=== PATIENT | female | born 1950 | race Caucasian/White ===

== ENCOUNTER 2019-10-10 10:38 | Day surgery (SDC) | payer MEDICARE, BC ==
[~2019-10-10 10:38] MED LIST: Cefuroxime 10 MG/ML SYRINGE EYERT SCH; Lactated Ringers 1,000 ML IV SCH; Lidocaine 1% PF 2 ML SDV INJECT SCH; Lidocaine 1%/Sod Bicarbonate in NS 8.4% 1 ML Syringe IDERM PRN; Pilocarpine 4% Ophth Soln 15 ML Bot EYERT SCH; Polymyxin B/Trimethoprim 10 ML Bottle EYERT SCH; Sodium Chloride 0.9% 10 ML Syringe FLUSH PRN
[2019-10-10] MEDS: Ofloxacin 0.3% Ophth Soln 5 ML Bottle EYERT SCH ×2 (12:27→13:15)
[2019-10-10] MEDS: Brimonidine 0.2% Ophth Soln 5 ML Bottle EYERT SCH ×3 (12:35→14:42)
[2019-10-10] MEDS: Phenylephrine 2.5% Ophth Soln 2 ML Bot EYERT SCH ×5 (12:40→14:18)
[2019-10-10] MEDS: Tropicamide 1% Ophth Soln 15 ML Bottle EYERT SCH ×4 (12:46→13:36)
--- NOTE | 2019-10-10 13:10 | PCM.PREANE ---
Preanesthetic Assessment - Anesthesia/Transfusion/Family Hx Anesthesia History: Prior Anesthesia Without Reaction Family History of Anesthesia Reaction: No Transfusion History: Prior Transfusion Without Reaction - Review of Systems General: No Symptoms Pulmonary: No Symptoms Cardiovascular: No Symptoms Gastrointestinal: No Symptoms Neurological: No Symptoms Other: Reports: None - Physical Assessment NPO Status Date: 10/10/19 NPO Status Time: 06:00 Height: 1.63 m Weight: 57.606 kg ASA Class: 2 Mental Status: Alert & Oriented x3 Airway Class: Mallampati = 2 Dentition: Reports: Normal Dentition Thyro-Mental Finger Breadths: 3 Mouth Opening Finger Breadths: 3 ROM/Head Extension: Full Lungs: Clear to Auscultation, Normal Respiratory Effort Cardiovascular: Regular Rate, Regular Rhythm - Allergies Allergies/Adverse Reactions: Allergies Allergy/AdvReac Type Severity Reaction Status Date / Time aspirin Allergy Cannot Verified 10/09/19 14:45 Remember penicillin G Allergy Cannot Verified 10/09/19 12:16 Remember sulfacetamide Allergy Cannot Verified 10/09/19 12:15 Remember - Acknowledgements Anesthesia Type Planned: MAC Pt an Appropriate Candidate for the Planned Anesthesia: Yes Alternatives and Risks of Anesthesia Discussed w Pt/Guardian: Yes Pt/Guardian Understands and Agrees with Anesthesia Plan: Yes PreAnesthesia Questionnaire HEENT History: Reports: Cataract Cardiovascular History: Reports: None Respiratory History: Reports: None Gastrointestinal History: Reports: None Genitourinary History: Reports: None Musculoskeletal History: Reports: None Neurological History: Reports: None Psychiatric History: Reports: None Endocrine/Metabolic History: Reports: None Oncologic (Cancer) History: Reports: Breast (diagnosed 2015) - Past Surgical History HEENT Surgical History: Reports: Oral Surgery Female Surgical History: Reports: Breast Biopsy, Tubal Ligation, Other (See Below) (breast lumpectomy) - SUBSTANCE USE Smoking Status *Q: Never Smoker - HOME MEDS Home Medications: Home Meds Cholecalciferol (Vitamin D3) [Vitamin D3] 1,000 unit PO DAILY 10/09/19 [History] Clopidogrel Bisulfate [Plavix] 75 mg PO DAILY 10/09/19 [History] Fish Oil/Fortine-3 Fatty Acids [Fish Oil 1,000 MG] 1 gm PO DAILY 10/09/19 [History ] Glucosamine [Glucosamine Sulfate] 500 mg PO DAILY 10/09/19 [History] Hydroxyurea [Hydrea] 500 mg PO DAILY 10/09/19 [History] - CURRENT (IN HOUSE) MEDS Current Meds: Current Medications Brimonidine Tartrate (Alphagan 0.2% Ophth Soln) 0 ml EYERT ASDIRECTED TOMI Stop: 10/10/19 18:00 Last Admin: 10/10/19 12:35 Dose: 1 drop Cefuroxime Sodium (Zinacef) 0 mg EYERT ASDIRECTED TOMI Stop: 10/10/19 18:00 Lactated Ringer's (Ringers, Lactated) 1,000 mls @ 125 mls/hr IV ASDIRECTED TOMI Stop: 10/10/19 23:00 Lidocaine HCl (Xylocaine-Mpf 1%) 0 ml INJECT ASDIRECTED TOMI Stop: 10/10/19 18:00 Lidocaine/Sodium Bicarbonate (Buffered Lidocaine 1% In Ns 8.4%) 0.25 ml IDERM ONETIME PRN PRN Reason: Prior to IV Start Stop: 10/10/19 18:00 Ofloxacin (Ocuflox 0.3% Ophth Soln) 0 ml EYERT ASDIRECTED TOMI Stop: 10/10/19 18:00 Last Admin: 10/10/19 12:27 Dose: 1 drop Phenylephrine HCl (Deandre-Synephrine 2.5% Ophth Soln) 0 ml EYERT ASDIRECTED TOMI Stop: 10/10/19 18:00 Last Admin: 10/10/19 13:01 Dose: 1 drop Pilocarpine HCl (Pilocar 4% Ophth Soln) 0 ml EYERT ASDIRECTED TOMI Stop: 10/10/19 18:00 Sodium Chloride (Saline Flush) 10 ml FLUSH ASDIRECTED PRN PRN Reason: Keep Vein Open Stop: 10/10/19 18:00 Tetracaine HCl (Tetracaine 0.5% Steri-Unit Kristie) 0 ml EYERT ASDIRECTED TOMI Stop: 10/10/19 18:00 Tropicamide (Mydriacyl 1% Ophth Soln) 0 ml EYERT ASDIRECTED TOMI Stop: 10/10/19 18:00 Last Admin: 10/10/19 12:56 Dose: 1 drop Discontinued Medications Polymyxin/Trimethoprim Sulfate (Polytrim Ophth Soln) 0 ml EYERT ASDIRECTED TOMI Stop: 10/10/19 18:00
[2019-10-10] MEDS: Tetracaine HCl/PF 0.5% 4 ML Bottle EYERT SCH ×2 (13:42→14:24)
--- NOTE | 2019-10-10 14:44 | PCM48HPAN ---
Post Anesthesia Note - EVALUATION WITHIN 48HRS OF ANESTHETIC Vital Signs in Normal Range: Yes Patient Participated in Evaluation: Yes Respiratory Function Stable: Yes Airway Patent: Yes Cardiovascular Function Stable: Yes Hydration Status Stable: Yes Pain Control Satisfactory: Yes Nausea and Vomiting Control Satisfactory: Yes Mental Status Recovered: Yes Vital Signs: Last Vital Signs Temp 36.7 C 10/10/19 12:15 Pulse 63 10/10/19 12:15 Resp 16 10/10/19 12:15 BP 119/69 10/10/19 12:15 Pulse Ox 98 10/10/19 12:15
== END 2019-10-10 15:02 | disposition home or self-care (01) ==
LOC: JD.SDS 10:38
PROVIDERS: ATTEND Ophthalmology
DX: H25.813 Combined forms of age-related cataract, bilateral (principal); H21.81 Floppy iris syndrome; H21.42 Pupillary membranes, left eye; H16.103 Unspecified superficial keratitis, bilateral; H16.223 Keratoconjunctivitis sicca, not specified as Sjogren's, bilateral; H40.003 Preglaucoma, unspecified, bilateral; H02.834 Dermatochalasis of left upper eyelid; H02.831 Dermatochalasis of right upper eyelid; Z88.6 Allergy status to analgesic agent; Z88.0 Allergy status to penicillin; Z88.2 Allergy status to sulfonamides
CPT/HCPCS: 66982; C1780; J0697; J2001; A9270-GY